=== PATIENT | female | born 1975 | race Caucasian/White ===

== ENCOUNTER 2021-08-02 10:45 | Outpatient (CLI) | payer BC | END 2021-08-02 10:46 | disposition home or self-care (01) | LOC: CSHRAD 10:45 | PROVIDERS: ATTEND Family Medicine | DX: M25.551 Pain in right hip (principal); M79.604 Pain in right leg; M16.11 Unilateral primary osteoarthritis, right hip ==

== ENCOUNTER 2022-08-30 08:59 | Outpatient (CLI) | payer BC | END 2022-08-30 09:00 | disposition home or self-care (01) | LOC: CSHMAMMO 08:59 | PROVIDERS: ATTEND Family Medicine | DX: Z12.31 Encounter for screening mammogram for malignant neoplasm of breast (principal); Z80.3 Family history of malignant neoplasm of breast | CPT/HCPCS: 77063; 77067 ==

== ENCOUNTER 2022-09-13 08:46 | Outpatient (CLI) | payer BC | END 2022-09-13 08:47 | disposition home or self-care (01) | LOC: CSHULT 08:46 | PROVIDERS: ATTEND Family Medicine | DX: R92.8 Other abnormal and inconclusive findings on diagnostic imaging of breast (principal) ==

== ENCOUNTER 2024-08-13 08:54 | Outpatient (CLI) | payer OTHER | END 2024-08-13 08:55 | disposition home or self-care (01) | LOC: CSHMAMMO 08:54 | PROVIDERS: ATTEND Family Medicine | DX: N63.20 Unspecified lump in the left breast, unspecified quadrant (principal) | CPT/HCPCS: 77066; G0279 ==